=== PATIENT | female | born 1990 | race Caucasian/White ===

== ENCOUNTER 2019-12-22 23:15 | Emergency (ER) | payer OTHER, SELFPAY ==
[2019-12-23] MEDS ORDERED: Ibuprofen 400 MG TAB ONE (00:02)
--- NOTE | 2019-12-23 09:23 | RAD ---
THREE VIEWS OF THE LEFT ANKLE: DATE: 12/22/2019. COMPARISON: None. HISTORY: Pain. FINDINGS: A nondisplaced transverse fracture of the lateral malleolus noted with overlying soft tissue swelling . The talar dome appears intact. No additional fracture or evidence of dislocation. IMPRESSION: Transverse nondisplaced distal left fibular/lateral malleolar fracture. POS: [facility]
== END 2019-12-23 00:20 | disposition home or self-care (01) ==
LOC: MADERS 23:15
DX: S82.832A Other fracture of upper and lower end of left fibula, initial encounter for closed fracture (principal); S82.65XA Nondisplaced fracture of lateral malleolus of left fibula, initial encounter for closed fracture; W10.9XXA Fall (on) (from) unspecified stairs and steps, initial encounter
CPT/HCPCS: 29515